=== PATIENT | male | born 1980 | race Caucasian/White ===

== ENCOUNTER 2017-01-06 22:21 | Emergency (ER) | payer SELFPAY ==
[~2017-01-06] VITALS: Ht 175.3 cm; Wt 99.8 kg
[2017-01-06] MEDS ORDERED: TdaP Vaccine 0.5ml Syr IM ONE (22:30)
[2017-01-06] MEDS ORDERED: Norco 5mg/325mg tab ORAL ONE (22:30)
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
[2017-01-06] MEDS ORDERED: IBUPROFEN600 MG ORAL (23:38)
[2017-01-07] VITALS: BP 121/78
[2017-01-07 00:02] VITALS: BP 121/78
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
== END 2017-01-07 00:02 | disposition home or self-care (01) ==
LOC: EDBD 22:21 → EMR 22:40
DX: S01.01XA Laceration without foreign body of scalp, initial encounter (principal); S00.83XA Contusion of other part of head, initial encounter; Y04.2XXA Assault by strike against or bumped into by another person, initial encounter; Y92.89 Other specified places as the place of occurrence of the external cause; Z23 Encounter for immunization; J32.9 Chronic sinusitis, unspecified
CPT/HCPCS: 70450; 70486; 90471; 90715

== ENCOUNTER 2017-02-10 15:54 | Emergency (ER) | payer SELFPAY ==
[~2017-02-10] VITALS: Ht 167.6 cm; Wt 93.4 kg
[~2017-02-10 15:54] MED LIST: IBUPROFEN600 MG ORAL
[2017-02-10 16:20] VITALS: BP 122/75
[2017-02-10 16:37] VITALS: BP 122/75
--- NOTE | 2017-02-10 17:10 | Emergency Room Report ---
History of Present Illness General Chief Complaint: Wound Recheck/Suture Removal Source: Patient Present Illness HPI Patient presents for removal of lb on the top parietal area of his head [place] were put in her back and middle of December patient denies any discharge Denies any fevers denies any headache Feels that the area has been healing well Patient was not able to come to the ER earlier and now presents for removal Allergies: Coded Allergies: No Known Allergies (Unverified , 01/06/17) Patient History Past Medical History: see triage record Pertinent Family History: none Reviewed Nursing Documentation: PMH: Agreed, PSxH: Agreed Nursing Documentation-PMH Past Medical History: No Stated History Review of Systems All Other Systems: negative except mentioned in HPI Physical Exam Vital Signs Date Time Temp Pulse Resp B/P Pulse Ox O2 Delivery O2 Flow Rate FiO2 02/10/17 16:10 98.1 64 16 122/75 99 Room Air Sp02 EP Interpretation: reviewed, normal General Appearance: well appearing, no apparent distress Head: normocephalic, other - Four lb in place Eyes: bilateral eye PERRL ENT: normal pharynx Neck: full range of motion, supple Respiratory: lungs clear Musculoskeletal: normal inspection Neurologic: normal inspection, alert Skin: other - [place] in place no obvious dehiscence no fluctuance Lymphatic: no adenopathy Medical Decision Making Diagnostic Impression: Primary Impression: staple removal ER Course The area was prepped Four lb were in place They were removed in the usual manner without any incidents area appears to be healing well and the patient was stable for close outpatient follow Last Vital Signs Date Time Temp Pulse Resp B/P Pulse Ox O2 Delivery O2 Flow Rate FiO2 02/10/17 16:10 98.1 64 16 122/75 99 Room Air Status: improved Disposition: HOME, SELF-CARE Condition: Improved Patient Instructions: Wound Check Additional Instructions: Patient is provided with the discharge instructions notified to follow up with primary doctor in the next 2-3 days otherwise return to the er with any worsening symptoms. Please note that this report is being documented using [employer] technology. This can lead to erroneous entry secondary to incorrect interpretation by the dictating instrument. MAGDA PAZ D.O. Feb 10, 2017 17:10
== END 2017-02-10 16:41 | disposition home or self-care (01) ==
LOC: EMR 16:40
DX: S01.01XD Laceration without foreign body of scalp, subsequent encounter (principal); Z48.02 Encounter for removal of sutures
CPT/HCPCS: 99282